=== PATIENT | male | born 1935 | race Caucasian/White ===

== ENCOUNTER 2017-04-01 18:21 | Inpatient (IN) ==
[2017-04-01] MEDS ORDERED: cefTRIAXone 1,000 MG in SODIUM CHLORIDE 0.9% 100 ML IV STA (19:26)
[2017-04-01] MEDS ORDERED: ACETAMINOPHEN 500 MG TABLET PO STA (19:26)
[2017-04-01] MEDS ORDERED: ALBUTEROL NEB SOLN 5 MG/ML 20 ML/BOTTLE CONT NEB STA (19:26)
[2017-04-01] MEDS ORDERED: methylPREDNISolone SOD SUC 125 MG/2 ML VIAL IV STA (19:26)
[2017-04-01 19:48] LABS: Basophils % 0.3 % (0.0-0.8); Eosinophils % 0.1 % (0.00-10.9); Hematocrit 30.4 VOL% (42.0-52.0); Hemoglobin 9.6 GM/DL (14.0-18.0); Immature Granulocytes % 0.4 %; Immature Granulocytes Absolute 0.05 #; Lymphocytes # 1.1 10*3/uL (1.4-4.0); Lymphocytes % 9.5 % (21.2-54.2); Mean Corpuscular HGB Conc 31.6 GM/DL (32-36); Mean Corpuscular Hemoglobin 30 PG (27-34); Mean Corpuscular Volume 93.5 FL (87-102); Mean Platelet Volume 8.9 FL (9.6-12.0); Monocytes # 0.8 10*3/uL (0.11-0.8); Monocytes % 6.9 % (1.7-12.7); Neutrophils # 9.3 10*3/uL (1.4-7.4); Neutrophils % 82.8 % (38.7-73.9); Platelet Count 314 T/CUMM (130-400); Red Blood Count 3.25 MC/CUMM (3.8-5.5); Red Cell Distribution Width 12.1 % (9.3-17.3); White Blood Count 11.2 T/CUMM (4-12)
[2017-04-01] MEDS ORDERED: OSELTAMIVIR 75 MG CAPSULE PO ONE (19:52)
[2017-04-01 20:07] LABS: Albumin 3.2 G/DL (3.4-5.0); Bilirubin,Total 0.4 MG/DL (0.2-1.0); Calcium 10.1 MG/DL (8.5-10.1); Magnesium 1.8 MG/DL (1.8-2.4); Osmolality,Calculated 279.7 MOS/KG (273-304); Potassium 3.9 MMOL/L (3.5-5.1); Total Protein 6.4 G/DL (6.4-8.3)
[2017-04-01 20:10] LABS: Lactic Acid 3.2 MMOL/L (0.4-2.0)
[2017-04-01] MEDS ORDERED: PIPERACILLIN/TAZOBACTAM 3,375 MG in SODIUM CHLORIDE 0.9% 100 ML IV SCH (20:30)
[2017-04-01] MEDS ORDERED: SODIUM CHLORIDE 0.9% 100 ML IV ONE (20:42)
[2017-04-01] MEDS ORDERED: cefTRIAXone 1,000 MG VIAL ONE (20:42)
[2017-04-01] MEDS ORDERED: OSELTAMIVIR 75 MG CAPSULE ONE (20:42)
[2017-04-01] MEDS ORDERED: PIPERACILLIN/TAZOBACTAM 3,375 MG VIAL IV ONE (20:42)
[2017-04-01] MEDS ORDERED: methylPREDNISolone SOD SUC 125 MG/2 ML VIAL ONE (20:42)
[2017-04-01] MEDS ORDERED: ACETAMINOPHEN 500 MG TABLET ONE (20:42)
[2017-04-01 23:20] LABS: Apearance,Urine Slightly Hazy (Clear); Bilirubin,Urine Negative (Negative); Blood, Urine Negative (Negative); Glucose,Urine (UA) Negative (Negative); Hyaline Casts,Urine 2 /LPF (0-3); Ketones,Urine Negative (Negative); Mucus,Urine Occasional /LPF (Occasional); Nitrite,Urine Negative (Negative); Protein,Urine 30 MG/DL; RBC,Urine 6 /HPF (0-4); Urine Color Yellow (Yellow); Urine Urobilinogen < 2.0 EU/DL (0.2-1.0); WBC,Urine 3 /HPF (0-6)
[2017-04-02 00:46] LABS: ABG Base Excess -1.6 MMOL/L (-2.5-2.5); ABG HCO3 23.1 MMOL/L (20-26); ABG PCO2 40.5 MM HG (35-48); ABG TCO2 21.8 MMOL/L (23-27); Glucose Heart Surgery 209 MG/DL (74-106); Hematocrit Heart Surgery 26.2 PERCENT (42-52); Hemoglobin Heart Surgery 8.4 G/DL (14.0-18.0); Ionized Calcium Arterial 1.33 MMOL/L (1.21-1.46); PCO2 Patient Temp Arterial 40.5 MMHG; Patient Temperature 37 CELCIUS; Potassium Heart/CVR 3.7 MMOL/L (3.5-5.1); Sodium Heart/CVR 138 MMOL/L (135-145)
[2017-04-02] MEDS ORDERED: ALBUMIN 5% 12.5 GM/250 ML VIAL IV ONE (01:15)
[2017-04-02] MEDS: PHENYLEPHRINE DRIP 40 MG/250 ML PREMIX IV SCH ×2 (02:45→22:44)
[2017-04-02 02:59] LABS: ABG Base Excess -6.4 MMOL/L (-2.5-2.5); ABG HCO3 19.2 MMOL/L (20-26); ABG Oxygen Saturation 99.9 % (95-100); ABG PCO2 35.2 MM HG (35-48); ABG PH 7.336 (7.35-7.45); ABG TCO2 17.7 MMOL/L (23-27); Glucose Heart Surgery 242 MG/DL (74-106); Hematocrit Heart Surgery 24.5 PERCENT (42-52); Hemoglobin Heart Surgery 7.8 G/DL (14.0-18.0); Ionized Calcium Arterial 1.32 MMOL/L (1.21-1.46); PCO2 Patient Temp Arterial 35.2 MMHG; PH Patient Temp Arterial 7.336; Patient Temperature 37 CELCIUS; Potassium Heart/CVR 3.5 MMOL/L (3.5-5.1); Sodium Heart/CVR 141 MMOL/L (135-145)
[2017-04-02] MEDS: PROPOFOL 1,000 MG/100 ML BOTTLE IV SCH ×4 (03:00→22:19)
[2017-04-02] MEDS ORDERED: ePHEDrine 50 MG/ML AMP ONE (03:01)
[2017-04-02] MEDS ORDERED: SEVOFLURANE 1 UNIT/15 MINUTE INH ONE (03:01)
[2017-04-02] MEDS ORDERED: ETOMIDATE 40 MG/20 ML VIAL IV ONE (03:01)
[2017-04-02] MEDS ORDERED: fentaNYL 100 MCG/2 ML VIAL ONE (03:01)
[2017-04-02] MEDS ORDERED: MIDAZOLAM 10 MG/2 ML VIAL ONE (03:01)
[2017-04-02] MEDS ORDERED: SODIUM CHLORIDE 0.9% 1,000 ML IV ONE (03:02)
[2017-04-02] MEDS ORDERED: LACTATED RINGERS 1,000 ML IV ONE (03:02)
[2017-04-02] MEDS ORDERED: HEPARIN/NACL 0.9% 2 UNITS/ML 500 ML IV ONE (03:02)
[2017-04-02] MEDS ORDERED: ROCURONIUM 100 MG/10 ML VIAL IV ONE (03:02)
[2017-04-02] MEDS: LACTATED RINGERS 1,000 ML IV SCH ×5 (03:31→22:52)
[2017-04-02] MEDS: PIPERACILLIN/TAZOBACTAM 3,375 MG in SODIUM CHLORIDE 0.9% 100 ML IV SCH ×3 (04:05→18:00)
[2017-04-02] MEDS: metroNIDAZOLE INJ 500 MG in PREMIX 1 EACH IV SCH ×3 (04:40→21:14)
[2017-04-02 05:29] LABS: Basophils % 0.1 % (0.0-0.8); Hematocrit 25.6 VOL% (42.0-52.0); Immature Granulocytes % 0.4 %; Immature Granulocytes Absolute 0.04 #; Lymphocytes % 9.6 % (21.2-54.2); Mean Corpuscular HGB Conc 31.3 GM/DL (32-36); Mean Corpuscular Hemoglobin 29 PG (27-34); Mean Corpuscular Volume 92.8 FL (87-102); Mean Platelet Volume 8.9 FL (9.6-12.0); Monocytes # 0.4 10*3/uL (0.11-0.8); Monocytes % 3.9 % (1.7-12.7); Neutrophils # 9.2 10*3/uL (1.4-7.4); Platelet Count 259 T/CUMM (130-400); Red Blood Count 2.76 MC/CUMM (3.8-5.5); Red Cell Distribution Width 12.3 % (9.3-17.3); White Blood Count 10.6 T/CUMM (4-12)
[2017-04-02 05:53] LABS: Hypochromasia 1+; Microcytosis Slight; Platelet Estimate Normal
[2017-04-02 06:15] LABS: Lactic Acid 6.1 MMOL/L (0.4-2.0)
[2017-04-02 06:34] LABS: Albumin 2.8 G/DL (3.4-5.0); Bilirubin,Total 0.5 MG/DL (0.2-1.0); Calcium 9.3 MG/DL (8.5-10.1); Osmolality,Calculated 289.5 MOS/KG (273-304); Potassium 3.6 MMOL/L (3.5-5.1); Total Protein 5.5 G/DL (6.4-8.3)
[2017-04-02] MEDS ORDERED: MAGNESIUM SULF RIDER 4 GM in PREMIX 1 EACH IV PRN (07:43)
[2017-04-02] MEDS ORDERED: MAGNESIUM SULF RIDER 2 GM in PREMIX 1 EACH IV PRN (07:43)
[2017-04-02] MEDS ORDERED: SODIUM CHLORIDE 0.9% 1,000 ML IV PRN (07:53)
[2017-04-02] MEDS ORDERED: FUROSEMIDE 20 MG/2 ML VIAL IV PRN (07:53)
[2017-04-02] MEDS ORDERED: ACETAMINOPHEN 325 MG TABLET PO PRN (07:53)
[2017-04-02] MEDS: GABAPENTIN 300 MG CAPSULE PO SCH ×3 (08:28→21:15)
[2017-04-02] MEDS: PANTOPRAZOLE 40 MG VIAL IV SCH (08:28)
[2017-04-02] MEDS: FINASTERIDE 5 MG TABLET PO SCH (08:28)
[2017-04-02] MEDS: MULTIVITAMIN (CENTRUM) TABLET PO SCH (08:28)
[2017-04-02] MEDS: ENOXAPARIN 40 MG/0.4 ML SYRINGE SUBCUT SCH (08:28)
[2017-04-02] MEDS: POTASSIUM CHLORIDE RIDER 10 MEQ in PREMIX 1 EACH IV PRN ×2 (08:28→17:56)
[2017-04-02] MEDS: amLODIPine 10 MG TABLET PO SCH (08:28)
[2017-04-02] MEDS: ALBUTEROL/IPRATROPIUM 3 ML NEB RESP TX SCH ×2 (13:46→20:09)
[2017-04-02] MEDS ORDERED: FUROSEMIDE 20 MG/2 ML VIAL ONE (14:48)
[2017-04-02] MEDS: TAMSULOSIN 0.4 MG CAPSULE PO SCH (21:15)
[2017-04-02] MEDS: HYDROmorphone 2 MG/1 ML VIAL IV PRN (22:18)
[2017-04-03] MEDS: PROPOFOL 1,000 MG/100 ML BOTTLE IV SCH ×3 (01:03→09:27)
[2017-04-03] MEDS: PHENYLEPHRINE DRIP 40 MG/250 ML PREMIX IV SCH (01:04)
[2017-04-03] MEDS: ALBUTEROL/IPRATROPIUM 3 ML NEB RESP TX SCH ×4 (01:14→19:59)
[2017-04-03] MEDS: LACTATED RINGERS 1,000 ML IV SCH ×3 (01:33→18:04)
[2017-04-03] MEDS: PIPERACILLIN/TAZOBACTAM 3,375 MG in SODIUM CHLORIDE 0.9% 100 ML IV SCH ×3 (02:05→18:04)
[2017-04-03] MEDS: metroNIDAZOLE INJ 500 MG in PREMIX 1 EACH IV SCH ×3 (03:41→20:26)
[2017-04-03 08:02] LABS: ABG Base Excess 3.3 MMOL/L (-2.5-2.5); ABG HCO3 27.4 MMOL/L (20-26); ABG PCO2 31.6 MM HG (35-48); ABG PH 7.522 (7.35-7.45); ABG TCO2 23.9 MMOL/L (23-27); Basophils % 0.1 % (0.0-0.8); Hematocrit 25.9 VOL% (42.0-52.0); Hemoglobin 8.6 GM/DL (14.0-18.0); Immature Granulocytes % 0.4 %; Immature Granulocytes Absolute 0.04 #; Lymphocytes # 2.5 10*3/uL (1.4-4.0); Lymphocytes % 22.1 % (21.2-54.2); Mean Corpuscular HGB Conc 33.2 GM/DL (32-36); Mean Corpuscular Hemoglobin 29 PG (27-34); Mean Corpuscular Volume 88.4 FL (87-102); Mean Platelet Volume 9.6 FL (9.6-12.0); Monocytes # 0.6 10*3/uL (0.11-0.8); Monocytes % 4.9 % (1.7-12.7); Neutrophils # 8.3 10*3/uL (1.4-7.4); Neutrophils % 72.5 % (38.7-73.9); Platelet Count 255 T/CUMM (130-400); Red Blood Count 2.93 MC/CUMM (3.8-5.5); Red Cell Distribution Width 14.6 % (9.3-17.3); White Blood Count 11.4 T/CUMM (4-12)
[2017-04-03 08:29] LABS: Albumin 2.3 G/DL (3.4-5.0); Bilirubin,Total 0.4 MG/DL (0.2-1.0); Calcium 9.4 MG/DL (8.5-10.1); Magnesium 1.8 MG/DL (1.8-2.4); Potassium 3.4 MMOL/L (3.5-5.1); Total Protein 4.9 G/DL (6.4-8.3)
[2017-04-03 08:33] LABS: Lactic Acid 1.9 MMOL/L (0.4-2.0)
[2017-04-03] MEDS: PANTOPRAZOLE 40 MG VIAL IV SCH (09:26)
[2017-04-03] MEDS: GABAPENTIN 300 MG CAPSULE PO SCH ×3 (09:26→20:26)
[2017-04-03] MEDS: FINASTERIDE 5 MG TABLET PO SCH (09:26)
[2017-04-03] MEDS: MULTIVITAMIN (CENTRUM) TABLET PO SCH (09:26)
[2017-04-03] MEDS: ENOXAPARIN 40 MG/0.4 ML SYRINGE SUBCUT SCH (09:26)
[2017-04-03] MEDS: amLODIPine 10 MG TABLET PO SCH (09:26)
[2017-04-03] MEDS: POTASSIUM CHLORIDE RIDER 10 MEQ in PREMIX 1 EACH IV PRN ×3 (11:08→13:27)
[2017-04-03] MEDS: ONDANSETRON 4 MG/2 ML VIAL IV PRN ×2 (17:08→23:00)
[2017-04-03] MEDS: HYDROmorphone 2 MG/1 ML VIAL IV PRN ×2 (17:08→23:54)
[2017-04-03] MEDS: TAMSULOSIN 0.4 MG CAPSULE PO SCH (20:26)
[2017-04-04] MEDS: ALBUTEROL/IPRATROPIUM 3 ML NEB RESP TX SCH ×4 (01:37→21:05)
[2017-04-04] MEDS: PIPERACILLIN/TAZOBACTAM 3,375 MG in SODIUM CHLORIDE 0.9% 100 ML IV SCH ×3 (02:08→23:10)
[2017-04-04] MEDS: PROPOFOL 1,000 MG/100 ML BOTTLE IV SCH (02:09)
[2017-04-04] MEDS: PHENYLEPHRINE DRIP 40 MG/250 ML PREMIX IV SCH (02:09)
[2017-04-04] MEDS: LACTATED RINGERS 1,000 ML IV SCH ×3 (02:10→22:44)
[2017-04-04] MEDS: metroNIDAZOLE INJ 500 MG in PREMIX 1 EACH IV SCH ×3 (05:10→22:43)
[2017-04-04 05:27] LABS: Hematocrit 33.5 VOL% (42.0-52.0); Hemoglobin 10.8 GM/DL (14.0-18.0)
[2017-04-04 05:59] LABS: Calcium 9.9 MG/DL (8.5-10.1); Magnesium 1.9 MG/DL (1.8-2.4); Osmolality,Calculated 289.7 MOS/KG (273-304); Potassium 3.2 MMOL/L (3.5-5.1)
[2017-04-04] MEDS: POTASSIUM CHLORIDE RIDER 10 MEQ in PREMIX 1 EACH IV PRN ×3 (08:20→12:51)
[2017-04-04] MEDS: ENOXAPARIN 40 MG/0.4 ML SYRINGE SUBCUT SCH (09:28)
[2017-04-04] MEDS: FINASTERIDE 5 MG TABLET PO SCH (09:29)
[2017-04-04] MEDS: MULTIVITAMIN (CENTRUM) TABLET PO SCH (09:29)
[2017-04-04] MEDS: GABAPENTIN 300 MG CAPSULE PO SCH ×3 (09:29→22:41)
[2017-04-04] MEDS: amLODIPine 10 MG TABLET PO SCH (09:29)
[2017-04-04] MEDS: PANTOPRAZOLE 40 MG VIAL IV SCH (09:29)
[2017-04-04] MEDS: TAMSULOSIN 0.4 MG CAPSULE PO SCH (22:41)
[2017-04-04] MEDS: HYDROmorphone 2 MG/1 ML VIAL IV PRN (23:08)
[2017-04-05] MEDS: ALBUTEROL/IPRATROPIUM 3 ML NEB RESP TX SCH ×4 (01:32→20:39)
[2017-04-05] MEDS: PHENYLEPHRINE DRIP 40 MG/250 ML PREMIX IV SCH (04:25)
[2017-04-05] MEDS: PROPOFOL 1,000 MG/100 ML BOTTLE IV SCH (04:25)
[2017-04-05] MEDS: LACTATED RINGERS 1,000 ML IV SCH ×2 (04:30→10:18)
[2017-04-05] MEDS: metroNIDAZOLE INJ 500 MG in PREMIX 1 EACH IV SCH ×3 (06:00→20:29)
[2017-04-05] MEDS: PIPERACILLIN/TAZOBACTAM 3,375 MG in SODIUM CHLORIDE 0.9% 100 ML IV SCH ×3 (07:20→22:10)
[2017-04-05] MEDS: GABAPENTIN 300 MG CAPSULE PO SCH ×3 (09:00→20:30)
[2017-04-05] MEDS: amLODIPine 10 MG TABLET PO SCH (10:14)
[2017-04-05] MEDS: PANTOPRAZOLE 40 MG VIAL IV SCH (10:14)
[2017-04-05] MEDS ORDERED: KETOROLAC 15 MG/1 ML VIAL IV PRN (13:06)
[2017-04-05] MEDS: ONDANSETRON 4 MG/2 ML VIAL IV PRN (13:57)
[2017-04-05] MEDS: ENOXAPARIN 40 MG/0.4 ML SYRINGE SUBCUT SCH (14:05)
[2017-04-05] MEDS: MULTIVITAMIN (CENTRUM) TABLET PO SCH (16:56)
[2017-04-05] MEDS: FINASTERIDE 5 MG TABLET PO SCH (16:57)
[2017-04-05] MEDS: TAMSULOSIN 0.4 MG CAPSULE PO SCH (20:30)
[2017-04-05] MEDS: HYDROmorphone 2 MG/1 ML VIAL IV PRN (20:31)
[2017-04-06] MEDS: ALBUTEROL/IPRATROPIUM 3 ML NEB RESP TX SCH ×4 (01:15→20:39)
[2017-04-06] MEDS: metroNIDAZOLE INJ 500 MG in PREMIX 1 EACH IV SCH ×3 (04:21→21:20)
[2017-04-06] MEDS: PIPERACILLIN/TAZOBACTAM 3,375 MG in SODIUM CHLORIDE 0.9% 100 ML IV SCH ×3 (06:30→23:35)
[2017-04-06] MEDS: ENOXAPARIN 40 MG/0.4 ML SYRINGE SUBCUT SCH (09:28)
[2017-04-06] MEDS: GABAPENTIN 300 MG CAPSULE PO SCH ×3 (09:28→21:20)
[2017-04-06] MEDS: FINASTERIDE 5 MG TABLET PO SCH (09:28)
[2017-04-06] MEDS: MULTIVITAMIN (CENTRUM) TABLET PO SCH (09:28)
[2017-04-06] MEDS: amLODIPine 10 MG TABLET PO SCH (09:28)
[2017-04-06] MEDS: PANTOPRAZOLE 40 MG VIAL IV SCH (09:56)
[2017-04-06] MEDS: HYDROmorphone 2 MG/1 ML VIAL IV PRN (10:20)
[2017-04-06 11:36] LABS: Calcium 9.4 MG/DL (8.5-10.1); Magnesium 1.7 MG/DL (1.8-2.4); Osmolality,Calculated 285.1 MOS/KG (273-304); Potassium 2.7 MMOL/L (3.5-5.1)
[2017-04-06] MEDS: KETOROLAC 15 MG/1 ML VIAL IV SCH ×2 (13:24→21:20)
[2017-04-06] MEDS: LACTATED RINGERS 1,000 ML IV SCH ×2 (21:20→23:35)
[2017-04-06] MEDS: TAMSULOSIN 0.4 MG CAPSULE PO SCH (21:20)
[2017-04-07] MEDS: ALBUTEROL/IPRATROPIUM 3 ML NEB RESP TX SCH ×4 (01:16→20:57)
[2017-04-07] MEDS: POTASSIUM CHLORIDE RIDER 10 MEQ in PREMIX 1 EACH IV PRN ×5 (04:01→15:46)
[2017-04-07] MEDS: metroNIDAZOLE INJ 500 MG in PREMIX 1 EACH IV SCH ×3 (05:31→21:34)
[2017-04-07] MEDS: LACTATED RINGERS 1,000 ML IV SCH ×3 (06:45→18:14)
[2017-04-07] MEDS: PIPERACILLIN/TAZOBACTAM 3,375 MG in SODIUM CHLORIDE 0.9% 100 ML IV SCH ×2 (07:12→17:46)
[2017-04-07] MEDS: ENOXAPARIN 40 MG/0.4 ML SYRINGE SUBCUT SCH (09:50)
[2017-04-07] MEDS: MULTIVITAMIN (CENTRUM) TABLET PO SCH (09:50)
[2017-04-07] MEDS: GABAPENTIN 300 MG CAPSULE PO SCH ×3 (09:52→21:35)
[2017-04-07] MEDS: FINASTERIDE 5 MG TABLET PO SCH (09:54)
[2017-04-07] MEDS: PANTOPRAZOLE 40 MG VIAL IV SCH (09:56)
[2017-04-07] MEDS: KETOROLAC 15 MG/1 ML VIAL IV SCH ×2 (09:58→21:35)
[2017-04-07] MEDS: amLODIPine 10 MG TABLET PO SCH (10:18)
[2017-04-07] MEDS: TAMSULOSIN 0.4 MG CAPSULE PO SCH (21:35)
[2017-04-08] MEDS: LACTATED RINGERS 1,000 ML IV SCH ×5 (00:43→20:42)
[2017-04-08] MEDS: POTASSIUM CHLORIDE RIDER 10 MEQ in PREMIX 1 EACH IV PRN ×7 (00:49→22:30)
[2017-04-08] MEDS: ALBUTEROL/IPRATROPIUM 3 ML NEB RESP TX SCH ×3 (01:17→19:50)
[2017-04-08] MEDS: PIPERACILLIN/TAZOBACTAM 3,375 MG in SODIUM CHLORIDE 0.9% 100 ML IV SCH ×3 (02:23→17:02)
[2017-04-08] MEDS: metroNIDAZOLE INJ 500 MG in PREMIX 1 EACH IV SCH ×3 (04:24→20:52)
[2017-04-08 06:47] LABS: Basophils # 0.1 10*3/uL (0.0-0.2); Basophils % 0.4 % (0.0-0.8); Eosinophils # 0.3 10*3/uL (0.0-0.87); Eosinophils % 2.3 % (0.00-10.9); Hematocrit 31.7 VOL% (42.0-52.0); Hemoglobin 10.4 GM/DL (14.0-18.0); Immature Granulocytes % 2.2 %; Immature Granulocytes Absolute 0.26 #; Lymphocytes # 3.1 10*3/uL (1.4-4.0); Lymphocytes % 25.9 % (21.2-54.2); Mean Corpuscular HGB Conc 32.8 GM/DL (32-36); Mean Corpuscular Hemoglobin 28 PG (27-34); Mean Corpuscular Volume 86.6 FL (87-102); Mean Platelet Volume 9.5 FL (9.6-12.0); Monocytes % 8.3 % (1.7-12.7); Neutrophils # 7.2 10*3/uL (1.4-7.4); Neutrophils % 60.9 % (38.7-73.9); Platelet Count 361 T/CUMM (130-400); Red Blood Count 3.66 MC/CUMM (3.8-5.5); Red Cell Distribution Width 13.1 % (9.3-17.3); White Blood Count 11.9 T/CUMM (4-12)
[2017-04-08 07:17] LABS: Band Neutrophils 2 % (0-10); Eosinophils 3 % (0-10); Hypochromasia 2+; Lymphocytes 20 % (20-55); Platelet Estimate Normal; Segmented Neutrophils 67 % (50-85); Total Cells Counted 100
[2017-04-08] MEDS ORDERED: MIDAZOLAM 2 MG/2 ML VIAL ONE (07:23)
[2017-04-08] MEDS ORDERED: PROMETHAZINE 25 MG/1 ML VIAL IM ONE (07:30)
[2017-04-08] MEDS ORDERED: MEPERIDINE 50 MG/1 ML VIAL IM ONE (07:30)
[2017-04-08] MEDS ORDERED: GLYCOPYRROLATE 0.4 MG/2 ML VIAL IM ONE (07:30)
[2017-04-08] MEDS: ENOXAPARIN 40 MG/0.4 ML SYRINGE SUBCUT SCH (07:46)
[2017-04-08] MEDS ORDERED: MIDAZOLAM 2 MG/2 ML VIAL IV ONE (08:00)
[2017-04-08] MEDS ORDERED: LIDOCAINE 1% 20 ML VIAL MISC INJ ONE (08:00)
[2017-04-08] MEDS ORDERED: LIDOCAINE 2% VISCOUS 100 ML BOTTLE SWISH/SPIT ONE (08:00)
[2017-04-08] MEDS ORDERED: LIDOCAINE 2% 20 ML VIAL RESP TX ONE (08:00)
[2017-04-08] MEDS: FINASTERIDE 5 MG TABLET PO SCH (08:48)
[2017-04-08] MEDS: MULTIVITAMIN (CENTRUM) TABLET PO SCH (08:48)
[2017-04-08] MEDS: GABAPENTIN 300 MG CAPSULE PO SCH ×3 (08:48→20:52)
[2017-04-08] MEDS: amLODIPine 10 MG TABLET PO SCH (08:48)
[2017-04-08] MEDS: KETOROLAC 15 MG/1 ML VIAL IV SCH ×2 (08:59→20:43)
[2017-04-08] MEDS: PANTOPRAZOLE 40 MG VIAL IV SCH (09:00)
[2017-04-08] MEDS ORDERED: POTASSIUM CHLORIDE RIDER 20 MEQ in PREMIX 1 EACH IV PRN (09:13)
[2017-04-08 11:07] LABS: Calcium 9.3 MG/DL (8.5-10.1); Magnesium 1.6 MG/DL (1.8-2.4); Osmolality,Calculated 278.3 MOS/KG (273-304); Potassium 2.9 MMOL/L (3.5-5.1)
[2017-04-08] MEDS ORDERED: POTASSIUM CHLORIDE 20 MEQ TABLET PO ONE (16:17)
[2017-04-08] MEDS: TAMSULOSIN 0.4 MG CAPSULE PO SCH (20:52)
[2017-04-09] MEDS: ALBUTEROL/IPRATROPIUM 3 ML NEB RESP TX SCH ×5 (00:16→19:21)
[2017-04-09] MEDS: POTASSIUM CHLORIDE RIDER 10 MEQ in PREMIX 1 EACH IV PRN ×3 (01:54→05:41)
[2017-04-09] MEDS: metroNIDAZOLE INJ 500 MG in PREMIX 1 EACH IV SCH ×3 (03:26→21:24)
[2017-04-09] MEDS: LACTATED RINGERS 1,000 ML IV SCH ×4 (03:54→22:23)
[2017-04-09] MEDS: PIPERACILLIN/TAZOBACTAM 3,375 MG in SODIUM CHLORIDE 0.9% 100 ML IV SCH ×3 (04:33→17:09)
[2017-04-09] MEDS: FINASTERIDE 5 MG TABLET PO SCH (08:35)
[2017-04-09] MEDS: amLODIPine 10 MG TABLET PO SCH (08:35)
[2017-04-09] MEDS: MULTIVITAMIN (CENTRUM) TABLET PO SCH (08:35)
[2017-04-09] MEDS: ENOXAPARIN 40 MG/0.4 ML SYRINGE SUBCUT SCH (08:35)
[2017-04-09] MEDS: PANTOPRAZOLE 40 MG VIAL IV SCH (08:35)
[2017-04-09] MEDS: POTASSIUM CHLORIDE 20 MEQ TABLET PO SCH ×2 (08:35→20:48)
[2017-04-09] MEDS: GABAPENTIN 300 MG CAPSULE PO SCH ×3 (08:35→20:48)
[2017-04-09] MEDS ORDERED: POTASSIUM CHLORIDE 20 MEQ TABLET PO ONE (11:30)
[2017-04-09] MEDS: TAMSULOSIN 0.4 MG CAPSULE PO SCH (20:48)
[2017-04-10] MEDS: PIPERACILLIN/TAZOBACTAM 3,375 MG in SODIUM CHLORIDE 0.9% 100 ML IV SCH ×3 (02:31→18:22)
[2017-04-10] MEDS: LACTATED RINGERS 1,000 ML IV SCH ×3 (03:09→18:38)
[2017-04-10 06:23] LABS: Basophils % 0.3 % (0.0-0.8); Eosinophils # 0.3 10*3/uL (0.0-0.87); Hematocrit 31.1 VOL% (42.0-52.0); Hemoglobin 10.2 GM/DL (14.0-18.0); Immature Granulocytes % 1.5 %; Immature Granulocytes Absolute 0.18 #; Lymphocytes # 2.7 10*3/uL (1.4-4.0); Lymphocytes % 21.9 % (21.2-54.2); Mean Corpuscular HGB Conc 32.8 GM/DL (32-36); Mean Corpuscular Hemoglobin 28 PG (27-34); Mean Corpuscular Volume 86.6 FL (87-102); Mean Platelet Volume 9.5 FL (9.6-12.0); Monocytes # 0.9 10*3/uL (0.11-0.8); Monocytes % 7.2 % (1.7-12.7); Neutrophils # 8.3 10*3/uL (1.4-7.4); Neutrophils % 67.1 % (38.7-73.9); Platelet Count 323 T/CUMM (130-400); Red Blood Count 3.59 MC/CUMM (3.8-5.5); Red Cell Distribution Width 13.3 % (9.3-17.3); White Blood Count 12.4 T/CUMM (4-12)
[2017-04-10] MEDS: metroNIDAZOLE INJ 500 MG in PREMIX 1 EACH IV SCH ×3 (06:31→23:52)
[2017-04-10 07:02] LABS: Magnesium 1.4 MG/DL (1.8-2.4)
[2017-04-10] MEDS: ALBUTEROL/IPRATROPIUM 3 ML NEB RESP TX SCH ×4 (07:41→20:47)
[2017-04-10 08:06] LABS: Magnesium 1.5 MG/DL (1.8-2.4); Osmolality,Calculated 275.5 MOS/KG (273-304); Potassium 3.4 MMOL/L (3.5-5.1)
[2017-04-10] MEDS: MULTIVITAMIN (CENTRUM) TABLET PO SCH (08:21)
[2017-04-10] MEDS: MAGNESIUM CHLORIDE 64 MG TABLET PO SCH ×2 (08:22→21:02)
[2017-04-10] MEDS: FINASTERIDE 5 MG TABLET PO SCH (08:22)
[2017-04-10] MEDS: ENOXAPARIN 40 MG/0.4 ML SYRINGE SUBCUT SCH (08:22)
[2017-04-10] MEDS: POTASSIUM CHLORIDE 20 MEQ TABLET PO SCH ×2 (08:22→21:02)
[2017-04-10] MEDS: amLODIPine 10 MG TABLET PO SCH (08:22)
[2017-04-10] MEDS: GABAPENTIN 300 MG CAPSULE PO SCH ×3 (08:22→21:03)
[2017-04-10] MEDS: PANTOPRAZOLE 40 MG VIAL IV SCH (08:22)
[2017-04-10] MEDS ORDERED: MAGNESIUM OXIDE 400 MG TABLET PO SCH (09:00)
[2017-04-10] MEDS ORDERED: DIAZEPAM 5 MG TABLET PO ONE (12:23)
[2017-04-10] MEDS ORDERED: HEPARIN 5,000 UNIT/1 ML VIAL ONE (12:33)
[2017-04-10] MEDS: oxyCODONE IR 5 MG TABLET PO PRN (19:27)
[2017-04-10] MEDS: TAMSULOSIN 0.4 MG CAPSULE PO SCH (21:02)
[2017-04-11] MEDS: ALBUTEROL/IPRATROPIUM 3 ML NEB RESP TX SCH ×4 (00:35→19:36)
[2017-04-11] MEDS: LACTATED RINGERS 1,000 ML IV SCH ×3 (02:29→18:29)
[2017-04-11] MEDS: PIPERACILLIN/TAZOBACTAM 3,375 MG in SODIUM CHLORIDE 0.9% 100 ML IV SCH ×3 (02:31→18:27)
[2017-04-11] MEDS: metroNIDAZOLE INJ 500 MG in PREMIX 1 EACH IV SCH ×3 (06:41→22:24)
[2017-04-11 06:44] LABS: Calcium 10.6 MG/DL (8.5-10.1); Magnesium 1.5 MG/DL (1.8-2.4); Osmolality,Calculated 276.5 MOS/KG (273-304); Potassium 3.8 MMOL/L (3.5-5.1)
[2017-04-11] MEDS: PANTOPRAZOLE 40 MG VIAL IV SCH (09:09)
[2017-04-11] MEDS: MULTIVITAMIN (CENTRUM) TABLET PO SCH (09:09)
[2017-04-11] MEDS: ENOXAPARIN 40 MG/0.4 ML SYRINGE SUBCUT SCH (09:09)
[2017-04-11] MEDS: amLODIPine 10 MG TABLET PO SCH (09:09)
[2017-04-11] MEDS: MAGNESIUM CHLORIDE 64 MG TABLET PO SCH ×2 (09:09→22:25)
[2017-04-11] MEDS: FINASTERIDE 5 MG TABLET PO SCH (09:10)
[2017-04-11] MEDS: GABAPENTIN 300 MG CAPSULE PO SCH ×3 (09:10→22:24)
[2017-04-11] MEDS: POTASSIUM CHLORIDE 20 MEQ TABLET PO SCH ×2 (09:10→22:24)
[2017-04-11] MEDS: oxyCODONE IR 5 MG TABLET PO PRN ×3 (11:18→22:27)
[2017-04-11] MEDS: TAMSULOSIN 0.4 MG CAPSULE PO SCH (22:24)
[2017-04-12] MEDS: PIPERACILLIN/TAZOBACTAM 3,375 MG in SODIUM CHLORIDE 0.9% 100 ML IV SCH ×3 (02:53→21:53)
[2017-04-12] MEDS: LACTATED RINGERS 1,000 ML IV SCH ×3 (02:55→22:15)
[2017-04-12] MEDS: metroNIDAZOLE INJ 500 MG in PREMIX 1 EACH IV SCH ×2 (04:48→14:11)
[2017-04-12] MEDS: oxyCODONE IR 5 MG TABLET PO PRN ×4 (05:27→20:39)
[2017-04-12 07:17] LABS: Calcium 10.2 MG/DL (8.5-10.1); Magnesium 1.7 MG/DL (1.8-2.4); Osmolality,Calculated 274.5 MOS/KG (273-304); Potassium 3.7 MMOL/L (3.5-5.1)
[2017-04-12] MEDS: ALBUTEROL/IPRATROPIUM 3 ML NEB RESP TX SCH ×4 (07:25→19:32)
[2017-04-12] MEDS: PANTOPRAZOLE 40 MG VIAL IV SCH (09:41)
[2017-04-12] MEDS: ENOXAPARIN 40 MG/0.4 ML SYRINGE SUBCUT SCH (09:41)
[2017-04-12] MEDS: MAGNESIUM CHLORIDE 64 MG TABLET PO SCH ×2 (09:42→20:39)
[2017-04-12] MEDS: MULTIVITAMIN (CENTRUM) TABLET PO SCH (09:42)
[2017-04-12] MEDS: amLODIPine 10 MG TABLET PO SCH (09:42)
[2017-04-12] MEDS: POTASSIUM CHLORIDE 20 MEQ TABLET PO SCH ×2 (09:42→20:39)
[2017-04-12] MEDS: FINASTERIDE 5 MG TABLET PO SCH (09:42)
[2017-04-12] MEDS: GABAPENTIN 300 MG CAPSULE PO SCH ×3 (09:44→20:39)
[2017-04-12] MEDS: TAMSULOSIN 0.4 MG CAPSULE PO SCH (20:39)
[2017-04-13] MEDS: ALBUTEROL/IPRATROPIUM 3 ML NEB RESP TX SCH ×4 (00:26→20:11)
[2017-04-13] MEDS: metroNIDAZOLE INJ 500 MG in PREMIX 1 EACH IV SCH ×3 (02:11→17:28)
[2017-04-13 03:05] LABS: Calcium 10.2 MG/DL (8.5-10.1); Magnesium 1.6 MG/DL (1.8-2.4); Osmolality,Calculated 277.5 MOS/KG (273-304); Potassium 3.6 MMOL/L (3.5-5.1)
[2017-04-13] MEDS: PIPERACILLIN/TAZOBACTAM 3,375 MG in SODIUM CHLORIDE 0.9% 100 ML IV SCH ×3 (05:03→21:01)
[2017-04-13] MEDS: oxyCODONE IR 5 MG TABLET PO PRN ×4 (05:05→22:48)
[2017-04-13] MEDS: LACTATED RINGERS 1,000 ML IV SCH ×2 (05:05→15:18)
[2017-04-13] MEDS: ENOXAPARIN 40 MG/0.4 ML SYRINGE SUBCUT SCH (08:07)
[2017-04-13] MEDS: MAGNESIUM CHLORIDE 64 MG TABLET PO SCH ×2 (09:15→20:50)
[2017-04-13] MEDS: GABAPENTIN 300 MG CAPSULE PO SCH ×3 (09:15→21:06)
[2017-04-13] MEDS: FINASTERIDE 5 MG TABLET PO SCH (09:15)
[2017-04-13] MEDS: amLODIPine 10 MG TABLET PO SCH (09:16)
[2017-04-13] MEDS: POTASSIUM CHLORIDE 20 MEQ TABLET PO SCH ×2 (09:16→20:50)
[2017-04-13] MEDS: MULTIVITAMIN (CENTRUM) TABLET PO SCH (09:16)
[2017-04-13] MEDS: PANTOPRAZOLE 40 MG VIAL IV SCH (09:17)
[2017-04-13] MEDS: fentaNYL 25 MCG/HR PATCH TRANSDERM SCH (14:50)
[2017-04-13] MEDS ORDERED: MAGNESIUM SULF RIDER 2 GM in PREMIX 1 EACH IV PRN (16:21)
[2017-04-13] MEDS: TAMSULOSIN 0.4 MG CAPSULE PO SCH (20:49)
[2017-04-14] MEDS: ALBUTEROL/IPRATROPIUM 3 ML NEB RESP TX SCH ×4 (00:54→19:35)
[2017-04-14] MEDS: metroNIDAZOLE INJ 500 MG in PREMIX 1 EACH IV SCH ×3 (01:19→19:08)
[2017-04-14] MEDS: PIPERACILLIN/TAZOBACTAM 3,375 MG in SODIUM CHLORIDE 0.9% 100 ML IV SCH ×4 (05:03→21:19)
[2017-04-14] MEDS: oxyCODONE IR 5 MG TABLET PO PRN ×3 (05:05→21:17)
[2017-04-14 05:06] LABS: Basophils # 0.1 10*3/uL (0.0-0.2); Basophils % 0.6 % (0.0-0.8); Eosinophils # 0.1 10*3/uL (0.0-0.87); Eosinophils % 0.9 % (0.00-10.9); Hematocrit 26.2 VOL% (42.0-52.0); Hemoglobin 8.4 GM/DL (14.0-18.0); Immature Granulocytes % 0.7 %; Immature Granulocytes Absolute 0.08 #; Lymphocytes % 16.6 % (21.2-54.2); Mean Corpuscular HGB Conc 32.1 GM/DL (32-36); Mean Corpuscular Hemoglobin 28 PG (27-34); Mean Corpuscular Volume 87.6 FL (87-102); Mean Platelet Volume 9.6 FL (9.6-12.0); Monocytes # 1.1 10*3/uL (0.11-0.8); Monocytes % 8.6 % (1.7-12.7); Neutrophils # 8.8 10*3/uL (1.4-7.4); Neutrophils % 72.6 % (38.7-73.9); Platelet Count 328 T/CUMM (130-400); Red Blood Count 2.99 MC/CUMM (3.8-5.5); Red Cell Distribution Width 13.7 % (9.3-17.3); White Blood Count 12.1 T/CUMM (4-12)
[2017-04-14 05:38] LABS: Osmolality,Calculated 282.1 MOS/KG (273-304); Potassium 3.8 MMOL/L (3.5-5.1)
[2017-04-14] MEDS: PANTOPRAZOLE 40 MG VIAL IV SCH (08:16)
[2017-04-14] MEDS: amLODIPine 10 MG TABLET PO SCH (08:17)
[2017-04-14] MEDS: GABAPENTIN 300 MG CAPSULE PO SCH ×3 (08:19→21:18)
[2017-04-14] MEDS: FINASTERIDE 5 MG TABLET PO SCH ×2 (08:19→12:09)
[2017-04-14] MEDS: MAGNESIUM CHLORIDE 64 MG TABLET PO SCH ×3 (08:19→21:18)
[2017-04-14] MEDS: MULTIVITAMIN (CENTRUM) TABLET PO SCH ×2 (08:19→12:09)
[2017-04-14] MEDS: POTASSIUM CHLORIDE 20 MEQ TABLET PO SCH ×3 (08:19→21:18)
[2017-04-14] MEDS ORDERED: BUPIVACAINE 0.25% 50 ML VIAL ONE (09:08)
[2017-04-14] MEDS ORDERED: LIDOCAINE 1%/EPI INJ 20 ML VIAL ONE (09:08)
[2017-04-14] MEDS ORDERED: HEPARIN 5,000 UNIT/1 ML VIAL ONE (09:08)
[2017-04-14] MEDS: ENOXAPARIN 40 MG/0.4 ML SYRINGE SUBCUT SCH (09:34)
[2017-04-14] MEDS ORDERED: PROPOFOL 200 MG/20 ML VIAL IV ONE (10:23)
[2017-04-14] MEDS ORDERED: MIDAZOLAM 2 MG/2 ML VIAL ONE (10:24)
[2017-04-14] MEDS ORDERED: fentaNYL 100 MCG/2 ML VIAL ONE (10:24)
[2017-04-14] MEDS: TAMSULOSIN 0.4 MG CAPSULE PO SCH (21:18)
[2017-04-15] MEDS: ALBUTEROL/IPRATROPIUM 3 ML NEB RESP TX SCH ×4 (01:16→19:09)
[2017-04-15] MEDS: metroNIDAZOLE INJ 500 MG in PREMIX 1 EACH IV SCH ×2 (02:03→11:23)
[2017-04-15] MEDS: PIPERACILLIN/TAZOBACTAM 3,375 MG in SODIUM CHLORIDE 0.9% 100 ML IV SCH (05:42)
[2017-04-15 07:16] LABS: Basophils # 0.1 10*3/uL (0.0-0.2); Basophils % 0.9 % (0.0-0.8); Eosinophils # 0.1 10*3/uL (0.0-0.87); Eosinophils % 0.8 % (0.00-10.9); Hematocrit 32.4 VOL% (42.0-52.0); Immature Granulocytes % 0.6 %; Immature Granulocytes Absolute 0.08 #; Mean Corpuscular HGB Conc 31.8 GM/DL (32-36); Mean Corpuscular Hemoglobin 28 PG (27-34); Mean Corpuscular Volume 87.8 FL (87-102); Mean Platelet Volume 9.7 FL (9.6-12.0); Monocytes # 1.2 10*3/uL (0.11-0.8); Monocytes % 8.3 % (1.7-12.7); Neutrophils # 10.6 10*3/uL (1.4-7.4); Neutrophils % 75.4 % (38.7-73.9); Red Cell Distribution Width 13.6 % (9.3-17.3)
[2017-04-15 07:32] LABS: Hemoglobin 10.3 GM/DL (14.0-18.0); Platelet Count 455 T/CUMM (130-400); Red Blood Count 3.69 MC/CUMM (3.8-5.5)
[2017-04-15] MEDS: PANTOPRAZOLE 40 MG VIAL IV SCH (08:41)
[2017-04-15] MEDS: ENOXAPARIN 40 MG/0.4 ML SYRINGE SUBCUT SCH (08:43)
[2017-04-15] MEDS: POTASSIUM CHLORIDE 20 MEQ TABLET PO SCH ×2 (08:45→20:38)
[2017-04-15] MEDS: MULTIVITAMIN (CENTRUM) TABLET PO SCH (08:45)
[2017-04-15] MEDS: FINASTERIDE 5 MG TABLET PO SCH (08:45)
[2017-04-15] MEDS: amLODIPine 10 MG TABLET PO SCH (08:45)
[2017-04-15] MEDS: GABAPENTIN 300 MG CAPSULE PO SCH ×3 (08:45→20:38)
[2017-04-15] MEDS: MAGNESIUM CHLORIDE 64 MG TABLET PO SCH ×2 (08:45→20:38)
[2017-04-15] MEDS: FLUCONAZOLE 200 MG TABLET PO SCH (11:30)
[2017-04-15] MEDS: oxyCODONE IR 5 MG TABLET PO PRN (11:30)
[2017-04-15] MEDS: cefTAZidime 1,000 MG in SYRINGE 1 EACH IV SCH ×2 (15:00→22:05)
[2017-04-15] MEDS: TAMSULOSIN 0.4 MG CAPSULE PO SCH (20:38)
[2017-04-16] MEDS: ALBUTEROL/IPRATROPIUM 3 ML NEB RESP TX SCH ×4 (01:04→19:35)
[2017-04-16] MEDS: FINASTERIDE 5 MG TABLET PO SCH (09:46)
[2017-04-16] MEDS: MULTIVITAMIN (CENTRUM) TABLET PO SCH (09:47)
[2017-04-16] MEDS: GABAPENTIN 300 MG CAPSULE PO SCH ×3 (09:47→20:13)
[2017-04-16] MEDS: PANTOPRAZOLE 40 MG VIAL IV SCH (09:49)
[2017-04-16] MEDS: amLODIPine 10 MG TABLET PO SCH (09:55)
[2017-04-16] MEDS ORDERED: BETAMETH SODIUM PHOS/ACETATE 30 MG/5 ML VIAL ONE (10:46)
[2017-04-16] MEDS ORDERED: fentaNYL 100 MCG/2 ML VIAL ONE (11:22)
[2017-04-16] MEDS ORDERED: PROPOFOL 200 MG/20 ML VIAL IV ONE (11:22)
[2017-04-16] MEDS: FLUCONAZOLE 200 MG TABLET PO SCH (12:30)
[2017-04-16] MEDS: fentaNYL 25 MCG/HR PATCH TRANSDERM SCH (12:30)
[2017-04-16] MEDS: POTASSIUM CHLORIDE 20 MEQ TABLET PO SCH ×2 (12:30→20:13)
[2017-04-16] MEDS: MAGNESIUM CHLORIDE 64 MG TABLET PO SCH ×2 (12:31→20:12)
[2017-04-16] MEDS: cefTAZidime 1,000 MG in SYRINGE 1 EACH IV SCH ×2 (12:31→23:50)
[2017-04-16] MEDS: oxyCODONE IR 5 MG TABLET PO PRN (20:13)
[2017-04-16] MEDS: TAMSULOSIN 0.4 MG CAPSULE PO SCH (20:13)
[2017-04-17] MEDS: ALBUTEROL/IPRATROPIUM 3 ML NEB RESP TX SCH ×4 (00:22→20:09)
[2017-04-17] MEDS: amLODIPine 10 MG TABLET PO SCH (09:22)
[2017-04-17] MEDS: POTASSIUM CHLORIDE 20 MEQ TABLET PO SCH ×2 (09:22→20:38)
[2017-04-17] MEDS: GABAPENTIN 300 MG CAPSULE PO SCH ×3 (09:23→20:39)
[2017-04-17] MEDS: FLUCONAZOLE 200 MG TABLET PO SCH (09:24)
[2017-04-17] MEDS: MAGNESIUM CHLORIDE 64 MG TABLET PO SCH ×2 (09:24→20:38)
[2017-04-17] MEDS: MULTIVITAMIN (CENTRUM) TABLET PO SCH (09:24)
[2017-04-17] MEDS: FINASTERIDE 5 MG TABLET PO SCH (09:24)
[2017-04-17] MEDS: PANTOPRAZOLE 40 MG VIAL IV SCH (09:27)
[2017-04-17] MEDS: HYDROmorphone 2 MG/1 ML VIAL IV PRN (09:34)
[2017-04-17] MEDS: cefTAZidime 1,000 MG in SYRINGE 1 EACH IV SCH ×2 (11:10→22:38)
[2017-04-17 16:18] LABS: Basophils % 0.2 % (0.0-0.8); Hematocrit 28.4 VOL% (42.0-52.0); Hemoglobin 9.2 GM/DL (14.0-18.0); Immature Granulocytes % 0.8 %; Lymphocytes # 1.8 10*3/uL (1.4-4.0); Lymphocytes % 13.6 % (21.2-54.2); Mean Corpuscular HGB Conc 32.4 GM/DL (32-36); Mean Corpuscular Hemoglobin 28 PG (27-34); Mean Corpuscular Volume 87.4 FL (87-102); Mean Platelet Volume 9.1 FL (9.6-12.0); Monocytes # 0.9 10*3/uL (0.11-0.8); Monocytes % 6.9 % (1.7-12.7); Neutrophils # 10.5 10*3/uL (1.4-7.4); Neutrophils % 78.5 % (38.7-73.9); Platelet Count 453 T/CUMM (130-400); Red Blood Count 3.25 MC/CUMM (3.8-5.5); Red Cell Distribution Width 13.7 % (9.3-17.3); White Blood Count 13.3 T/CUMM (4-12)
[2017-04-17 16:31] LABS: Apearance,Urine CLOUDY (Clear); Bilirubin,Urine Negative (Negative); Blood, Urine Negative (Negative); Glucose,Urine (UA) Negative (Negative); Hyaline Casts,Urine 7 /LPF (0-3); Ketones,Urine 5 mg/dL (Negative); Mucus,Urine Few /LPF (Occasional); Nitrite,Urine Negative (Negative); Protein,Urine 30 MG/DL; RBC,Urine 1 /HPF (0-4); Squamous Epithelial Cell,Urine Occasional /HPF (0-10); Urine Color Yellow (Yellow); Urine Specific Gravity 1.015 (1.001-1.035); Urine Urobilinogen < 2.0 EU/DL (0.2-1.0); WBC,Urine 7 /HPF (0-6)
[2017-04-17] MEDS: oxyCODONE IR 5 MG TABLET PO PRN (17:56)
[2017-04-17] MEDS: TAMSULOSIN 0.4 MG CAPSULE PO SCH (20:38)
[2017-04-18] MEDS: ALBUTEROL/IPRATROPIUM 3 ML NEB RESP TX SCH ×4 (00:49→18:23)
[2017-04-18 01:19] LABS: Basophils % 0.2 % (0.0-0.8); Eosinophils % 0.2 % (0.00-10.9); Hematocrit 27.7 VOL% (42.0-52.0); Immature Granulocytes % 0.7 %; Immature Granulocytes Absolute 0.09 #; Lymphocytes # 2.1 10*3/uL (1.4-4.0); Lymphocytes % 16.7 % (21.2-54.2); Mean Corpuscular HGB Conc 32.5 GM/DL (32-36); Mean Corpuscular Hemoglobin 29 PG (27-34); Mean Corpuscular Volume 87.7 FL (87-102); Mean Platelet Volume 9.2 FL (9.6-12.0); Monocytes % 8.1 % (1.7-12.7); Neutrophils # 9.3 10*3/uL (1.4-7.4); Neutrophils % 74.1 % (38.7-73.9); Platelet Count 440 T/CUMM (130-400); Red Blood Count 3.16 MC/CUMM (3.8-5.5); Red Cell Distribution Width 13.7 % (9.3-17.3); White Blood Count 12.6 T/CUMM (4-12)
[2017-04-18 01:47] LABS: Calcium 10.7 MG/DL (8.5-10.1); Magnesium 1.9 MG/DL (1.8-2.4); Osmolality,Calculated 286.4 MOS/KG (273-304); Potassium 4.3 MMOL/L (3.5-5.1)
[2017-04-18] MEDS: oxyCODONE IR 5 MG TABLET PO PRN ×2 (06:39→20:50)
[2017-04-18] MEDS: GABAPENTIN 300 MG CAPSULE PO SCH ×3 (10:00→20:49)
[2017-04-18] MEDS: MULTIVITAMIN (CENTRUM) TABLET PO SCH (10:00)
[2017-04-18] MEDS: POTASSIUM CHLORIDE 20 MEQ TABLET PO SCH ×2 (10:00→20:49)
[2017-04-18] MEDS: FLUCONAZOLE 200 MG TABLET PO SCH (10:00)
[2017-04-18] MEDS: amLODIPine 10 MG TABLET PO SCH (10:00)
[2017-04-18] MEDS: PANTOPRAZOLE 40 MG VIAL IV SCH (10:00)
[2017-04-18] MEDS: FINASTERIDE 5 MG TABLET PO SCH (10:00)
[2017-04-18] MEDS: MAGNESIUM CHLORIDE 64 MG TABLET PO SCH ×2 (10:01→20:49)
[2017-04-18] MEDS: cefTAZidime 1,000 MG in SYRINGE 1 EACH IV SCH ×2 (14:37→23:10)
[2017-04-18] MEDS: TAMSULOSIN 0.4 MG CAPSULE PO SCH (20:49)
[2017-04-18] MEDS: QUEtiapine XR 50 MG TABLET PO SCH (20:49)
[2017-04-19] MEDS: ALBUTEROL/IPRATROPIUM 3 ML NEB RESP TX SCH ×4 (01:08→21:25)
[2017-04-19] MEDS: oxyCODONE IR 5 MG TABLET PO PRN ×2 (05:44→19:08)
[2017-04-19] MEDS: HYDROmorphone 2 MG/1 ML VIAL IV PRN (10:58)
[2017-04-19] MEDS: PANTOPRAZOLE 40 MG VIAL IV SCH (11:02)
[2017-04-19] MEDS: fentaNYL 25 MCG/HR PATCH TRANSDERM SCH (11:18)
[2017-04-19] MEDS: cefTAZidime 1,000 MG in SYRINGE 1 EACH IV SCH ×2 (11:20→23:23)
[2017-04-19] MEDS: POTASSIUM CHLORIDE 20 MEQ TABLET PO SCH ×2 (17:45→20:23)
[2017-04-19] MEDS: MULTIVITAMIN (CENTRUM) TABLET PO SCH (17:45)
[2017-04-19] MEDS: GABAPENTIN 300 MG CAPSULE PO SCH ×2 (17:46→20:23)
[2017-04-19] MEDS: amLODIPine 10 MG TABLET PO SCH (17:46)
[2017-04-19] MEDS: FINASTERIDE 5 MG TABLET PO SCH (17:46)
[2017-04-19] MEDS: MAGNESIUM CHLORIDE 64 MG TABLET PO SCH ×2 (17:47→20:22)
[2017-04-19] MEDS: TAMSULOSIN 0.4 MG CAPSULE PO SCH (20:23)
[2017-04-20] MEDS: QUEtiapine XR 50 MG TABLET PO SCH ×3 (01:38→23:39)
[2017-04-20] MEDS: ALBUTEROL/IPRATROPIUM 3 ML NEB RESP TX SCH ×4 (01:45→20:39)
[2017-04-20] MEDS: GABAPENTIN 300 MG CAPSULE PO SCH ×3 (10:09→21:58)
[2017-04-20] MEDS: FINASTERIDE 5 MG TABLET PO SCH (10:09)
[2017-04-20] MEDS: amLODIPine 10 MG TABLET PO SCH (10:09)
[2017-04-20] MEDS: oxyCODONE IR 5 MG TABLET PO PRN (10:09)
[2017-04-20] MEDS: POTASSIUM CHLORIDE 20 MEQ TABLET PO SCH ×2 (10:11→21:57)
[2017-04-20] MEDS: MAGNESIUM CHLORIDE 64 MG TABLET PO SCH ×2 (10:11→21:57)
[2017-04-20] MEDS: MULTIVITAMIN (CENTRUM) TABLET PO SCH (10:11)
[2017-04-20] MEDS: PANTOPRAZOLE 40 MG VIAL IV SCH (10:12)
[2017-04-20] MEDS: cefTAZidime 1,000 MG in SYRINGE 1 EACH IV SCH ×2 (11:07→23:39)
[2017-04-20] MEDS: HYDROmorphone 2 MG/1 ML VIAL IV PRN ×2 (12:10→18:40)
[2017-04-20] MEDS: TAMSULOSIN 0.4 MG CAPSULE PO SCH (21:58)
[2017-04-21] MEDS: ALBUTEROL/IPRATROPIUM 3 ML NEB RESP TX SCH ×4 (06:56→19:13)
[2017-04-21] MEDS: HYDROmorphone 2 MG/1 ML VIAL IV PRN (07:25)
[2017-04-21] MEDS ORDERED: ZOLEDRONIC ACID 4 MG in PREMIX 1 EACH IV ONE (08:26)
[2017-04-21] MEDS: PANTOPRAZOLE 40 MG VIAL IV SCH (09:23)
[2017-04-21] MEDS: GRANISETRON 1 MG/1 ML VIAL IV SCH (09:23)
[2017-04-21 09:24] LABS: Alanine Aminotransferase 15 U/L (16-61); Albumin 2.4 G/DL (3.4-5.0); Alkaline Phosphatase 104 U/L (45-117); Aspartate Amino Transferase 15 U/L (0-37); Bilirubin,Total < 0.39 MG/DL (0.2-1.0); Blood Urea Nitrogen 20 MG/DL (7-18); Calcium 11.2 MG/DL (8.5-10.1); Glucose 102 MG/DL (74-106); Potassium 4.1 MMOL/L (3.5-5.1); Sodium 143 MMOL/L (136-145); Total Protein 5.8 G/DL (6.4-8.3)
[2017-04-21] MEDS: GABAPENTIN 300 MG CAPSULE PO SCH ×3 (09:24→21:49)
[2017-04-21] MEDS: MULTIVITAMIN (CENTRUM) TABLET PO SCH (09:24)
[2017-04-21] MEDS: MAGNESIUM CHLORIDE 64 MG TABLET PO SCH ×2 (09:24→21:49)
[2017-04-21] MEDS: amLODIPine 10 MG TABLET PO SCH (09:24)
[2017-04-21] MEDS: POTASSIUM CHLORIDE 20 MEQ TABLET PO SCH ×2 (09:24→21:49)
[2017-04-21] MEDS: FINASTERIDE 5 MG TABLET PO SCH (09:24)
[2017-04-21] MEDS: DEXAMETHASONE 4 MG TABLET PO SCH ×2 (09:24→21:49)
[2017-04-21] MEDS: cefTAZidime 1,000 MG in SYRINGE 1 EACH IV SCH ×2 (11:06→23:21)
[2017-04-21] MEDS ORDERED: DEXAMETHASONE 4 MG/1 ML VIAL IV ONE (11:40)
[2017-04-21] MEDS ORDERED: CARBOPLATIN IV ONE (11:45)
[2017-04-21] MEDS ORDERED: SODIUM CHLORIDE 0.9% IV ONE (11:45)
[2017-04-21] MEDS ORDERED: HEPARIN LOCK FLUSH 500 UNIT/5 ML SYRINGE IV ONE (14:49)
[2017-04-21] MEDS ORDERED: ZINC OXIDE PASTE 113 GM TUBE TOP PRN (16:04)
[2017-04-21] MEDS: TAMSULOSIN 0.4 MG CAPSULE PO SCH (21:49)
[2017-04-21] MEDS: QUEtiapine XR 50 MG TABLET PO SCH (22:11)
[2017-04-22] MEDS: ALBUTEROL/IPRATROPIUM 3 ML NEB RESP TX SCH ×5 (00:40→20:10)
[2017-04-22] MEDS: HYDROmorphone 2 MG/1 ML VIAL IV PRN ×3 (01:19→22:47)
[2017-04-22 05:17] LABS: Basophils % 0.1 % (0.0-0.8); Hematocrit 26.7 VOL% (42.0-52.0); Hemoglobin 8.6 GM/DL (14.0-18.0); Immature Granulocytes % 0.7 %; Immature Granulocytes Absolute 0.07 #; Lymphocytes # 1.1 10*3/uL (1.4-4.0); Lymphocytes % 11.4 % (21.2-54.2); Mean Corpuscular HGB Conc 32.2 GM/DL (32-36); Mean Corpuscular Hemoglobin 28 PG (27-34); Mean Corpuscular Volume 87.3 FL (87-102); Mean Platelet Volume 9.9 FL (9.6-12.0); Monocytes # 0.2 10*3/uL (0.11-0.8); Monocytes % 1.8 % (1.7-12.7); Neutrophils # 8.3 10*3/uL (1.4-7.4); Platelet Count 250 T/CUMM (130-400); Red Blood Count 3.06 MC/CUMM (3.8-5.5); Red Cell Distribution Width 13.6 % (9.3-17.3); White Blood Count 9.7 T/CUMM (4-12)
[2017-04-22 05:50] LABS: Bilirubin,Total 0.4 MG/DL (0.2-1.0); Calcium 10.5 MG/DL (8.5-10.1); Osmolality,Calculated 291.3 MOS/KG (273-304); Total Protein 5.5 G/DL (6.4-8.3)
[2017-04-22] MEDS ORDERED: diphenhydrAMINE 50 MG/1 ML VIAL IV ONE (08:38)
[2017-04-22] MEDS ORDERED: DEXAMETHASONE INJ 20 MG in SODIUM CHLORIDE 0.9% 50 ML IV ONE (08:38)
[2017-04-22] MEDS: PANTOPRAZOLE 40 MG VIAL IV SCH (09:02)
[2017-04-22] MEDS: GRANISETRON 1 MG/1 ML VIAL IV SCH (09:02)
[2017-04-22] MEDS: GABAPENTIN 300 MG CAPSULE PO SCH ×3 (09:03→20:42)
[2017-04-22] MEDS: amLODIPine 10 MG TABLET PO SCH (09:03)
[2017-04-22] MEDS: DEXAMETHASONE 4 MG TABLET PO SCH ×2 (09:03→20:42)
[2017-04-22] MEDS: MAGNESIUM CHLORIDE 64 MG TABLET PO SCH ×2 (09:03→20:41)
[2017-04-22] MEDS: MULTIVITAMIN (CENTRUM) TABLET PO SCH (09:03)
[2017-04-22] MEDS: FINASTERIDE 5 MG TABLET PO SCH (09:03)
[2017-04-22] MEDS: POTASSIUM CHLORIDE 20 MEQ TABLET PO SCH ×2 (09:03→20:42)
[2017-04-22] MEDS ORDERED: MAGNESIUM HYDROXIDE SUSP 30 ML UDCUP PO PRN (11:05)
[2017-04-22] MEDS ORDERED: MYLANTA/LIDO VISC 2:1 300 ML BOTTLE SWISH/SPIT PRN (11:05)
[2017-04-22] MEDS ORDERED: ONDANSETRON 4 MG/2 ML VIAL IV PRN (11:05)
[2017-04-22] MEDS ORDERED: diphenhydrAMINE CAP 25 MG CAPSULE PO PRN (11:05)
[2017-04-22] MEDS ORDERED: BENZTROPINE 2 MG/2 ML AMP IV PRN (11:05)
[2017-04-22] MEDS ORDERED: chlorproMAZINE 25 MG TABLET PO PRN (11:05)
[2017-04-22] MEDS ORDERED: chlorproMAZINE INJ 50 MG in SODIUM CHLORIDE 0.9% 100 ML IV PRN (11:05)
[2017-04-22] MEDS ORDERED: ACETAMINOPHEN 325 MG TABLET PO PRN (11:05)
[2017-04-22] MEDS ORDERED: traMADol 50 MG TABLET PO PRN (11:05)
[2017-04-22] MEDS ORDERED: LOPERAMIDE 2 MG CAPSULE PO PRN ×2 (11:05)
[2017-04-22] MEDS ORDERED: MYLANTA/LIDO VISC 2:1 300 ML BOTTLE SWISH/SWAL PRN (11:05)
[2017-04-22] MEDS ORDERED: chlorproMAZINE INJ 25 MG in SODIUM CHLORIDE 0.9% 100 ML IV PRN (11:05)
[2017-04-22] MEDS ORDERED: guaiFENesin 200 MG/10 ML UDCUP PO PRN (11:05)
[2017-04-22] MEDS ORDERED: TEMAZEPAM 7.5 MG CAPSULE PO PRN (11:05)
[2017-04-22] MEDS ORDERED: ALUMINUM/MAGNES/SIMETH MAX STR 30 ML UDCUP PO PRN (11:05)
[2017-04-22] MEDS ORDERED: PROMETHAZINE INJ 25 MG in SODIUM CHLORIDE 0.9% 50 ML IV PRN (11:05)
[2017-04-22] MEDS ORDERED: LACTULOSE 20 GM/30 ML UDCUP PO PRN (11:05)
[2017-04-22] MEDS: cefTAZidime 1,000 MG in SYRINGE 1 EACH IV SCH ×2 (11:34→22:48)
[2017-04-22] MEDS ORDERED: HEPARIN LOCK FLUSH 500 UNIT/5 ML SYRINGE IV ONE (16:25)
[2017-04-22] MEDS: QUEtiapine XR 50 MG TABLET PO SCH (20:41)
[2017-04-22] MEDS: TAMSULOSIN 0.4 MG CAPSULE PO SCH (20:42)
[2017-04-23 05:27] LABS: Hematocrit 26.9 VOL% (42.0-52.0); Hemoglobin 8.6 GM/DL (14.0-18.0); Immature Granulocytes % 1.7 %; Lymphocytes # 1.1 10*3/uL (1.4-4.0); Lymphocytes % 8.8 % (21.2-54.2); Mean Corpuscular Hemoglobin 28 PG (27-34); Mean Corpuscular Volume 87.9 FL (87-102); Monocytes # 0.1 10*3/uL (0.11-0.8); Monocytes % 1.2 % (1.7-12.7); Neutrophils # 10.7 10*3/uL (1.4-7.4); Neutrophils % 88.3 % (38.7-73.9); Platelet Count 292 T/CUMM (130-400); Red Blood Count 3.06 MC/CUMM (3.8-5.5); Red Cell Distribution Width 13.3 % (9.3-17.3); White Blood Count 12.1 T/CUMM (4-12)
[2017-04-23 05:57] LABS: Albumin 2.1 G/DL (3.4-5.0); Bilirubin,Total 0.5 MG/DL (0.2-1.0); Calcium 9.8 MG/DL (8.5-10.1); Osmolality,Calculated 299.3 MOS/KG (273-304); Potassium 5.1 MMOL/L (3.5-5.1); Total Protein 5.5 G/DL (6.4-8.3)
[2017-04-23] MEDS: ALBUTEROL/IPRATROPIUM 3 ML NEB RESP TX SCH ×3 (08:05→20:40)
[2017-04-23] MEDS: MULTIVITAMIN (CENTRUM) TABLET PO SCH (08:55)
[2017-04-23] MEDS: MAGNESIUM CHLORIDE 64 MG TABLET PO SCH ×2 (08:55→21:08)
[2017-04-23] MEDS: POTASSIUM CHLORIDE 20 MEQ TABLET PO SCH ×2 (08:55→21:08)
[2017-04-23] MEDS: FINASTERIDE 5 MG TABLET PO SCH (08:55)
[2017-04-23] MEDS: amLODIPine 10 MG TABLET PO SCH (08:55)
[2017-04-23] MEDS: GABAPENTIN 300 MG CAPSULE PO SCH ×3 (08:55→21:08)
[2017-04-23] MEDS: DEXAMETHASONE 4 MG TABLET PO SCH ×2 (08:55→21:09)
[2017-04-23] MEDS: GRANISETRON 1 MG/1 ML VIAL IV SCH (08:56)
[2017-04-23] MEDS: PANTOPRAZOLE 40 MG VIAL IV SCH (08:59)
[2017-04-23] MEDS: DEXTROSE 5% NACL 0.45% 1,000 ML IV SCH ×2 (09:20→17:40)
[2017-04-23] MEDS: HYDROmorphone 2 MG/1 ML VIAL IV PRN ×4 (09:34→22:28)
[2017-04-23] MEDS: cefTAZidime 1,000 MG in SYRINGE 1 EACH IV SCH ×2 (12:26→22:28)
[2017-04-23] MEDS: QUEtiapine XR 50 MG TABLET PO SCH (21:08)
[2017-04-23] MEDS: TAMSULOSIN 0.4 MG CAPSULE PO SCH (21:09)
[2017-04-24] MEDS: DEXTROSE 5% NACL 0.45% 1,000 ML IV SCH ×3 (02:07→19:50)
[2017-04-24] MEDS: ALBUTEROL/IPRATROPIUM 3 ML NEB RESP TX SCH ×4 (02:14→20:10)
[2017-04-24 05:53] LABS: Basophils % 0.1 % (0.0-0.8); Hematocrit 25.7 VOL% (42.0-52.0); Hemoglobin 8.4 GM/DL (14.0-18.0); Immature Granulocytes % 1.1 %; Immature Granulocytes Absolute 0.09 #; Lymphocytes # 0.6 10*3/uL (1.4-4.0); Lymphocytes % 7.2 % (21.2-54.2); Mean Corpuscular HGB Conc 32.7 GM/DL (32-36); Mean Corpuscular Hemoglobin 28 PG (27-34); Mean Corpuscular Volume 86.8 FL (87-102); Mean Platelet Volume 10.2 FL (9.6-12.0); Monocytes # 0.1 10*3/uL (0.11-0.8); Monocytes % 1.3 % (1.7-12.7); Neutrophils # 7.6 10*3/uL (1.4-7.4); Neutrophils % 90.3 % (38.7-73.9); Platelet Count 220 T/CUMM (130-400); Red Blood Count 2.96 MC/CUMM (3.8-5.5); Red Cell Distribution Width 13.2 % (9.3-17.3); White Blood Count 8.4 T/CUMM (4-12)
[2017-04-24 06:38] LABS: Albumin 2.1 G/DL (3.4-5.0); Bilirubin,Total 0.5 MG/DL (0.2-1.0); Calcium 9.3 MG/DL (8.5-10.1); Osmolality,Calculated 297.7 MOS/KG (273-304); Potassium 5.2 MMOL/L (3.5-5.1); Total Protein 5.4 G/DL (6.4-8.3)
[2017-04-24] MEDS: GABAPENTIN 300 MG CAPSULE PO SCH ×3 (09:11→23:25)
[2017-04-24] MEDS: MULTIVITAMIN (CENTRUM) TABLET PO SCH (09:11)
[2017-04-24] MEDS: FINASTERIDE 5 MG TABLET PO SCH (09:11)
[2017-04-24] MEDS: DEXAMETHASONE 4 MG TABLET PO SCH ×2 (09:11→23:22)
[2017-04-24] MEDS: POTASSIUM CHLORIDE 20 MEQ TABLET PO SCH (09:11)
[2017-04-24] MEDS: GRANISETRON 1 MG/1 ML VIAL IV SCH (09:12)
[2017-04-24] MEDS: PANTOPRAZOLE 40 MG VIAL IV SCH (09:14)
[2017-04-24] MEDS: HYDROmorphone 2 MG/1 ML VIAL IV PRN ×2 (09:16→19:37)
[2017-04-24] MEDS: amLODIPine 10 MG TABLET PO SCH (09:20)
[2017-04-24] MEDS: MAGNESIUM CHLORIDE 64 MG TABLET PO SCH ×2 (09:20→23:24)
[2017-04-24] MEDS: cefTAZidime 1,000 MG in SYRINGE 1 EACH IV SCH ×2 (11:44→23:20)
[2017-04-24] MEDS: ALPRAZolam 0.25 MG TABLET PO PRN (17:23)
[2017-04-24] MEDS: TAMSULOSIN 0.4 MG CAPSULE PO SCH (23:25)
[2017-04-24] MEDS: QUEtiapine XR 50 MG TABLET PO SCH (23:25)
[2017-04-25] MEDS: ALBUTEROL/IPRATROPIUM 3 ML NEB RESP TX SCH ×4 (00:56→21:40)
[2017-04-25] MEDS: DEXTROSE 5% NACL 0.45% 1,000 ML IV SCH ×2 (04:10→18:49)
[2017-04-25] MEDS: HYDROmorphone 2 MG/1 ML VIAL IV PRN ×4 (04:12→19:43)
[2017-04-25 05:05] LABS: Hematocrit 22.9 VOL% (42.0-52.0); Hemoglobin 7.5 GM/DL (14.0-18.0); Immature Granulocytes % 1.4 %; Immature Granulocytes Absolute 0.16 #; Lymphocytes # 0.8 10*3/uL (1.4-4.0); Lymphocytes % 6.9 % (21.2-54.2); Mean Corpuscular HGB Conc 32.8 GM/DL (32-36); Mean Corpuscular Hemoglobin 28 PG (27-34); Mean Corpuscular Volume 86.1 FL (87-102); Mean Platelet Volume 10.4 FL (9.6-12.0); Monocytes # 0.1 10*3/uL (0.11-0.8); Neutrophils # 10.7 10*3/uL (1.4-7.4); Neutrophils % 90.7 % (38.7-73.9); Platelet Count 225 T/CUMM (130-400); Red Blood Count 2.66 MC/CUMM (3.8-5.5); Red Cell Distribution Width 13.3 % (9.3-17.3); White Blood Count 11.8 T/CUMM (4-12)
[2017-04-25 05:27] LABS: Band Neutrophils 1 % (0-10); Giant Platelets Few; Hypochromasia 1+; Lymphocytes 8 % (20-55); Ovalocytes Slight; Platelet Estimate Adequate; Segmented Neutrophils 90 % (50-85); Total Cells Counted 100
[2017-04-25 05:31] LABS: Alanine Aminotransferase 16 U/L (16-61); Albumin 2.4 G/DL (3.4-5.0); Alkaline Phosphatase 73 U/L (45-117); Aspartate Amino Transferase 15 U/L (0-37); Bilirubin,Total < 0.39 MG/DL (0.2-1.0); Blood Urea Nitrogen 50 MG/DL (7-18); Calcium 9.3 MG/DL (8.5-10.1); Glucose 175 MG/DL (74-106); Osmolality,Calculated 293.5 MOS/KG (273-304); Potassium 4.5 MMOL/L (3.5-5.1); Sodium 139 MMOL/L (136-145); Total Protein 5.6 G/DL (6.4-8.3)
[2017-04-25] MEDS: ALPRAZolam 0.25 MG TABLET PO PRN (08:44)
[2017-04-25] MEDS: FINASTERIDE 5 MG TABLET PO SCH (08:44)
[2017-04-25] MEDS: DEXAMETHASONE 4 MG TABLET PO SCH ×2 (08:44→22:15)
[2017-04-25] MEDS: amLODIPine 10 MG TABLET PO SCH (08:44)
[2017-04-25] MEDS: GABAPENTIN 300 MG CAPSULE PO SCH ×3 (08:44→22:16)
[2017-04-25] MEDS: MULTIVITAMIN (CENTRUM) TABLET PO SCH (08:44)
[2017-04-25] MEDS: POTASSIUM CHLORIDE 20 MEQ TABLET PO SCH (08:44)
[2017-04-25] MEDS: GRANISETRON 1 MG/1 ML VIAL IV SCH (08:45)
[2017-04-25] MEDS: PANTOPRAZOLE 40 MG VIAL IV SCH (08:46)
[2017-04-25] MEDS: MAGNESIUM CHLORIDE 64 MG TABLET PO SCH ×2 (08:49→22:16)
[2017-04-25] MEDS: fentaNYL 25 MCG/HR PATCH TRANSDERM SCH (10:26)
[2017-04-25] MEDS: cefTAZidime 1,000 MG in SYRINGE 1 EACH IV SCH ×2 (10:26→23:17)
[2017-04-25 15:52] LABS: Apearance,Urine CLEAR (Clear); Bilirubin,Urine Negative (Negative); Blood, Urine Negative (Negative); Glucose,Urine (UA) 50 mg/dL (Negative); Ketones,Urine Negative (Negative); Nitrite,Urine Negative (Negative); Protein,Urine Negative; RBC,Urine <1 /HPF (0-4); Urine Color Yellow (Yellow); Urine Specific Gravity 1.013 (1.001-1.035); Urine Urobilinogen < 2.0 EU/DL (0.2-1.0); WBC,Urine 1 /HPF (0-6)
[2017-04-25] MEDS: LORazepam 2 MG/1 ML VIAL IV PRN (21:16)
[2017-04-25] MEDS: QUEtiapine XR 50 MG TABLET PO SCH (22:16)
[2017-04-25] MEDS: TAMSULOSIN 0.4 MG CAPSULE PO SCH (22:16)
[2017-04-26] MEDS: DEXTROSE 5% NACL 0.45% 1,000 ML IV SCH ×2 (01:46→11:01)
[2017-04-26] MEDS: LORazepam 2 MG/1 ML VIAL IV PRN (02:00)
[2017-04-26] MEDS: ALBUTEROL/IPRATROPIUM 3 ML NEB RESP TX SCH ×4 (03:02→20:40)
[2017-04-26 04:51] LABS: Hematocrit 28.8 VOL% (42.0-52.0); Hemoglobin 9.1 GM/DL (14.0-18.0); Immature Granulocytes Absolute 0.11 #; Lymphocytes # 0.9 10*3/uL (1.4-4.0); Lymphocytes % 8.1 % (21.2-54.2); Mean Corpuscular HGB Conc 31.6 GM/DL (32-36); Mean Corpuscular Hemoglobin 28 PG (27-34); Mean Corpuscular Volume 87.8 FL (87-102); Mean Platelet Volume 10.2 FL (9.6-12.0); Monocytes # 0.1 10*3/uL (0.11-0.8); Monocytes % 0.5 % (1.7-12.7); Neutrophils # 10.3 10*3/uL (1.4-7.4); Neutrophils % 90.4 % (38.7-73.9); Platelet Count 176 T/CUMM (130-400); Red Blood Count 3.28 MC/CUMM (3.8-5.5); Red Cell Distribution Width 13.5 % (9.3-17.3); White Blood Count 11.3 T/CUMM (4-12)
[2017-04-26] MEDS: HYDROmorphone 2 MG/1 ML VIAL IV PRN ×7 (05:11→23:26)
[2017-04-26 05:12] LABS: Alanine Aminotransferase 14 U/L (16-61); Alkaline Phosphatase 67 U/L (45-117); Aspartate Amino Transferase 12 U/L (0-37); Bilirubin,Total < 0.39 MG/DL (0.2-1.0); Blood Urea Nitrogen 39 MG/DL (7-18); Calcium 8.3 MG/DL (8.5-10.1); Glucose 166 MG/DL (74-106); Osmolality,Calculated 293.3 MOS/KG (273-304); Potassium 4.3 MMOL/L (3.5-5.1); Sodium 141 MMOL/L (136-145); Total Protein 5.1 G/DL (6.4-8.3)
[2017-04-27] MEDS: LORazepam 2 MG/1 ML VIAL IV PRN (00:11)
[2017-04-27] MEDS: ALBUTEROL/IPRATROPIUM 3 ML NEB RESP TX SCH ×3 (00:56→14:32)
[2017-04-27] MEDS: HYDROmorphone 2 MG/1 ML VIAL IV PRN ×3 (04:01→09:36)
[2017-04-27] MEDS: DEXTROSE 5% NACL 0.45% 1,000 ML IV SCH ×2 (09:38→12:21)
[2017-04-27] MEDS ORDERED: NALOXONE 0.4 MG/ML VIAL IV PRN (11:46)
[2017-04-27] MEDS: HYDROmorphone PCA 30 MG/30 ML SYRINGE IV SCH (12:21)
[2017-04-28] MEDS: ALBUTEROL/IPRATROPIUM 3 ML NEB RESP TX SCH ×3 (00:51→12:10)
[2017-04-28] MEDS: fentaNYL 25 MCG/HR PATCH TRANSDERM SCH (09:40)
[2017-04-28] MEDS: LORazepam 2 MG/1 ML VIAL IV PRN (11:46)
[2017-04-28] MEDS: HYDROmorphone PCA 30 MG/30 ML SYRINGE IV SCH ×2 (14:27→15:24)
[2017-04-29] MEDS: LORazepam 2 MG/1 ML VIAL IV PRN ×2 (04:16→21:20)
[2017-04-29] MEDS: HYDROmorphone PCA 30 MG/30 ML SYRINGE IV SCH (18:39)
[2017-04-30] MEDS: DEXTROSE 5% NACL 0.45% 1,000 ML IV SCH (07:42)
[2017-04-30 09:56] VITALS: BP 160/73
[2017-04-30] MEDS ORDERED: HEPARIN LOCK FLUSH 500 UNIT/5 ML SYRINGE IV ONE (11:09)
[2017-04-30] MEDS: HYDROmorphone PCA 30 MG/30 ML SYRINGE IV SCH (13:19)
== END 2017-04-30 15:22 | disposition hospice, home (50) | DRG 853 ==
LOC: EDBD → EDUNIT# → N.ED 18:21 → SUPCPDRO 23:07 → N.EDINP 23:07 → N.CC 04-02 02:26 → N.3E 04-04 21:06 → N.4E 04-20 16:43
PROVIDERS: ADMIT Family Medicine; ATTEND Family Medicine
PROC: BRONCHB (2017-04-08 08:50)